=== PATIENT | female | born 1990 | race Caucasian/White ===

== ENCOUNTER 2017-07-25 20:14 | Emergency (ER) | payer OTHER, MEDICAID, SELFPAY ==
--- NOTE | 2017-07-25 20:14 | DT_ITS ---
This patient was seen during an EMR downtime July 18, 2017 - July 25, 2017. This patient may have a combination of paper and electronic documentation or all paper documentation. All documentation is viewable within the e-chart portion of [employer] for each patient visit.
[2017-07-25 20:15] VITALS: BP 145/92; PULSE 120; RESP 16; TEMP 36.6; O2SAT 98; BMI 34.9
[2017-07-25] MEDS: Pantoprazole Sodium 40 MG Tablet PO (20:54)
--- NOTE | 2017-07-25 21:50 | ED.VISSUMM ---
- ER Visit Summary Date of Service: 07/25/17 Chief Complaint: Heartburn History of Present Illness: The patient is a 27 F with heartburn over the past 3 or 4 days. Patient has tried Mylanta, Tums, and Pepcid at home. She reports a lump in her throat and increased belching. She states she had reflux with but normally does not have issues. She had been taking quite a bit of NSAIDs but states she quit that a couple weeks ago because her stomach was getting upset. She denies any chest pain. She has had no vomiting or diarrhea. She denies prior pancreatitis or risk factors for such. Physical Examination: Vital signs are significant for heart rate of 120, otherwise unremarkable. Patient sitting upright in bed no acute distress. Head neck examination is normal. Heart is regular rate and rhythm. No lung sounds are clear. Abdomen is soft with focal tenderness in the epigastrium. There is no guarding or rebound. Active bowel sounds are noted. Test Results: [] Emergency Department Course and Treatment: Patient was given Protonix and a GI cocktail. On repeat evaluation she reports significant improvement. She be given a prescription for Protonix at home. Treatment Plan: [] Disposition: Discharge Impression: GERD This note was generated with [employer] dictation software. It may contain incorrect words, spelling, and punctuation that were not noted in review of the chart prior to signing ED Disposition - Plan for ED Patient: Chief Complaint: Nausea/Vomiting Referrals: Maikol Azul MD [Primary Care Provider] -
--- NOTE | 2017-07-25 21:52 | ED.DEP ---
ED Disposition - Plan for ED Patient: Disposition: Home or Assisted Living Chief Complaint: Nausea/Vomiting Instructions: ED GERD Prescriptions: Pantoprazole Sodium [Protonix] 40 mg PO DAILY #20 tablet Referrals: Maikol Azul MD [Primary Care Provider] - 1-2 Weeks
[2017-07-25 22:01] VITALS: BP 119/81; PULSE 82; RESP 17; O2SAT 97
--- NOTE | 2017-07-25 22:01 | ED.RN ---
DISCHARGE INSTRUCTIONS GIVEN TO AND REVIEWED WITH PATIENT, PATIENT DENIES QUESTIONS OR CONCERNS AND VOICES UNDERSTANDING OF DISCHARGE INSTRUCTIONS. PT AMBULATES OUT OF ROOM WITHOUT DIFFICULTY.
== END 2017-07-25 22:02 | disposition home or self-care (01) ==
PROVIDERS: Emergency Provider Emergency Medicine; Family Provider Family Medicine; PCP Family Medicine
DX: K21.9 Gastro-esophageal reflux disease without esophagitis (principal)
CPT/HCPCS: 99283